=== PATIENT | female | born 1965 ===

== ENCOUNTER 2021-10-27 11:01 | Emergency (ER) | payer SELFPAY ==
[2021-10-27 12:22] LABS: BLOOD UREA NITROGEN,BUN 29 mg/dL (7.0-18.0); CARBON DIOXIDE,CO2 28.5 mmol/L (21.0-32.0); CHLORIDE,CL 102 mmol/L (98-107); GLUCOSE RANDOM 136 mg/dL (74-106); POTASSIUM,K 3.8 mmol/L (3.5-5.1); SODIUM,NA 140 mmol/L (136-145)
[2021-10-27 12:24] LABS: CORONAVIRUS COVID-19 NAA NEGATIVE (NEGATIVE); INFLUENZA A NAA NEGATIVE (NEGATIVE); INFLUENZA B NAA NEGATIVE (NEGATIVE)
[2021-10-27 14:10] VITALS: BP 127/79; PULSE 71
[2021-10-27] MEDS ORDERED: Iopamidol 755 MG/ML 500 ML Multipack Bottle IVPUSH ONE (17:59)
== END 2021-10-27 14:58 ==
LOC: MW.ED 11:01
DX: S06.360A Traumatic hemorrhage of cerebrum, unspecified, without loss of consciousness, initial encounter (principal); S50.311A Abrasion of right elbow, initial encounter; I10 Essential (primary) hypertension; Z20.822 Contact with and (suspected) exposure to COVID-19; X50.0XXA Overexertion from strenuous movement or load, initial encounter
CPT/HCPCS: 0240U; 36415; 70450; 70496; 70498; 71045; 72125; 80053; 80307; 82803; 83605; 83735; 84484; 85025; 86140; 93005; 99291; Q9967; 93010; 99285